=== PATIENT | male | born 1955 | race Caucasian/White ===

== ENCOUNTER 2016-11-25 13:23 | Outpatient (CLI) | payer OTHER ==
[2016-11-25 13:55] LABS: BASOPHILS % (AUTO) 0.7 % (0.0-3.0); EOSINOPHILS # (AUTO) 0.3 K/ul (0.0-0.7); EOSINOPHILS % (AUTO) 4.9 % (0.0-7.0); HEMATOCRIT 41.9 % (42.0-52.0); HEMOGLOBIN 13.9 g/dl (14.0-18.0); IMMATURE GRANULOCYTE % (AUTO) 0.2 % (0.0-5.0); LYMPHOCYTES # (AUTO) 1.6 K/uL (0.60-3.4); LYMPHOCYTES % (AUTO) 27.2 (10.0-50.0); MEAN CORPUSCULAR HEMOGLOBIN 30.5 pg (27.0-31.0); MEAN CORPUSCULAR HGB CONC 33.2 (31.8-35.4); MEAN CORPUSCULAR VOLUME 92.1 fl (80.0-94.0); MONOCYTES # (AUTO) 0.6 K/uL (0.4-2.0); MONOCYTES % (AUTO) 9.7 (0-10); NEUTROPHILS # (AUTO) 3.3 K/ul (2.0-6.9); NEUTROPHILS % (AUTO) 57.3; PLATELET COUNT 358 10^3/uL (140-440); RED BLOOD COUNT 4.55 10^6/ul (4.70-6.10); WHITE BLOOD COUNT 5.77 K/ul (4.2-10.2)
--- NOTE | 2016-11-25 14:36 | CT ---
EXAM: CT lumbar spine without contrast. HISTORY: Back pain. COMPARISON: MRI 01/07/2013. TECHNIQUE: Multiple axial images of the lumbar spine were obtained without intravenous contrast. I mages were reformatted in the sagittal and coronal planes. FINDINGS: Curvature and alignment are maintained. There is moderate loss of disc height at L4-5, g reater along the left side. There is mild loss of disc height at L5-S1. Vertebral body heights are normal. No fracture or subluxation identified. Paravertebral soft tissues are unremarkable. T12-L1: No neural compromise. L1-2: No neural compromise. L2-3: Disc osteophyte formation, facet arthropathy and thickening of the ligamentum flavum cause fl attening of the ventral thecal sac and minimal neural foraminal narrowing. L3-4: Disc osteophyte formation, facet arthropathy and thickening of the ligamentum flavum cause mi ld central canal stenosis and mild neural foraminal narrowing. L4-5: Disc osteophyte formation, facet arthropathy and thickening of ligamentum flavum cause mild t o moderate central canal stenosis and mild to moderate right and moderate to severe left neural fora jesika narrowing. L5-S1: Disc osteophyte formation and facet arthropathy cause moderate right and severe left neural foraminal narrowing. IMPRESSION: Multilevel degenerative changes as described, probably mildly worsened since the prior study.
--- NOTE | 2016-11-25 14:40 | CT ---
EXAM: CT thoracic spine without contrast HISTORY: Back pain COMPARISON: None TECHNIQUE: CT thoracic spine performed without intravenous contrast. Coronal and sagittal reformat storm images obtained. FINDINGS: The bones appear demineralized. No fracture or subluxation. Minimal chronic anterior wed ging T7. Vertebral bodies otherwise normal in height. Moderate multilevel chronic discogenic dege nerative disease with multilevel intervertebral disc space narrowing and marginal osteophyte formati on with bulky osteophyte formation in the lower thoracic spine. Several posterior disc osteophyte co mplexes causing minimal to mild central canal narrowing. No paravertebral soft tissue abnormality. Coronary calcifications noted. Mild atherosclerotic calcification. Small debris in the trachea. Paratracheal air cyst noted. IMPRESSION: 1. No fracture or subluxation. 2. Moderate chronic discogenic degenerative disease. 3. Minimal chronic anterior wedging T7. 4. Bones appear demineralized. 5. Small debris in the trachea. 6. Coronary calcifications. Mild atherosclerosis.
[2016-11-25 14:54] LABS: ALBUMIN 3.7 g/dL (3.4-5.0); ALBUMIN/GLOBULIN RATIO 1.06; ANION GAP 11.5; BILIRUBIN,TOTAL 0.45 mg/dL (0.00-1.20); BUN/CREATININE RATIO 14.13; CALCIUM 9.6 mg/dL (8.2-10.2); CHOL/HDL RATIO 2.2 (4.5-6.4); CREATININE 0.92 mg/dL (0.60-1.10); POTASSIUM 4.5 mmol/L (3.5-5.1); TOTAL PROTEIN 7.2 g/dL (5.8-8.1)
== END 2016-11-25 13:24 | disposition home or self-care (01) ==
LOC: RAD 13:23
PROVIDERS: ATTEND Emergency Medicine
DX: E11.9 Type 2 diabetes mellitus without complications (principal); I10 Essential (primary) hypertension; E78.5 Hyperlipidemia, unspecified; J44.9 Chronic obstructive pulmonary disease, unspecified; M54.9 Dorsalgia, unspecified
CPT/HCPCS: 36415; 80053; 80061; 83036; 84443; 85025

== ENCOUNTER 2016-12-09 14:00 | Outpatient (RCR) | END 2016-12-12 | LOC: NEWBEG 14:00 | PROVIDERS: ATTEND Psychiatry & Neurology Psychiatry | DX: F33.1 Major depressive disorder, recurrent, moderate (principal); F41.9 Anxiety disorder, unspecified; F60.3 Borderline personality disorder | CPT/HCPCS: 90792; 90834; 90853; 99213 ==

== ENCOUNTER 2016-12-30 14:30 | Outpatient (RCR) | END 2017-01-11 | LOC: NEWBEG 14:30 | PROVIDERS: ATTEND Psychiatry & Neurology Psychiatry | DX: F33.1 Major depressive disorder, recurrent, moderate (principal); F41.9 Anxiety disorder, unspecified | CPT/HCPCS: 90832; 90837 ==

== ENCOUNTER 2017-01-12 10:36 | Outpatient (RCR) | END 2017-02-11 | LOC: NEWBEG 10:36 | PROVIDERS: ATTEND Psychiatry & Neurology Psychiatry | DX: F33.1 Major depressive disorder, recurrent, moderate (principal); F41.9 Anxiety disorder, unspecified; F60.3 Borderline personality disorder ==